=== PATIENT | male | born 1965 | race Caucasian/White ===

== ENCOUNTER 2018-01-25 12:12 | Emergency (ER) | payer OTHER ==
[~2018-01-25] VITALS: Ht 172.7 cm; Wt 81.7 kg
[2018-01-25] MEDS ORDERED: NORCO 5-325 TA1 EACH PO (14:44)
[2018-01-25 14:47] VITALS: BP 152/105
== END 2018-01-25 14:57 | disposition home or self-care (01) ==
LOC: M.ERS 12:12
DX: S22.42XA Multiple fractures of ribs, left side, initial encounter for closed fracture (principal); W11.XXXA Fall on and from ladder, initial encounter; Y93.89 Activity, other specified; Y92.89 Other specified places as the place of occurrence of the external cause; Y99.8 Other external cause status